=== PATIENT | male | born 1950 | race Caucasian/White ===

== ENCOUNTER 2016-03-30 16:46 | Inpatient (IN) | payer OTHER ==
[~2016-03-30] VITALS: Ht 180.3 cm; Wt 92.3 kg
[~2016-03-30 16:46] MED LIST: ACETAMINOPHEN500 MG PO; ALTACE10 M1 PO; ALTACE10 MG PO; ALTACE2.5 MG PO; ANALGESIC325 MG PO; BACTRIM,SEPT1 TABLET GT; BUMETANIDE1 MG PO; FENTANYL1 EAC5 TD; FORTAMET500 M1 PO; GABAPENTIN300 MG PO; GLUCOPHAGE500 MG PO; GLYBURIDE PO; JEVITY 1.2 CAL237 ML GT; K-DUR10 MEQ PO; KEFLEX500 MG GT; LANTUS 3 M100 UNITS1 SC; LEVO-T112 MCG GT; LIDOPATCH1 EACH TD; LIPITOR40 MG GT; LISINOPRIL5 MG PO; LITE COAT ASPI325 M1 GT; LOPRESSOR25 MG PO; METFORMIN HCL1000 MG PO; METFORMIN HCL500 MG PO; METOPROLOL SUC100 MG PO; METOPROLOL SUCC25 MG PO; METOPROLOL TART25 MG PO; NICOTINE PATCH1 EAC1 TD; NICOTINE PATCH1 EAC2 TD; NOVOFINE NEE1 NEEDLE MC; ONGLYZA5 MG PO; OXYCODONE H5 MG/5 ML PO; OXYCONTIN20 MG PO; SANTYL30 GM TP; SERTRALINE HCL50 MG GT; SIMVASTATIN10 MG PO; SIMVASTATIN20 M1 PO; TYLENOL EXTRA500 MG GT; TYLENOL EXTRA500 MG PO; ZEASORB POWDE70.9 GM TP; ZOCOR40 MG PO; ZYVOX600 MG PO; Zeasorb Antifungal Treatment,Mitrazol Powder TP
[2016-03-30 19:12] LABS: CHLORIDE 98 mEq/L (99-109); POTASSIUM 4.2 mEq/L (3.7-5.4); SODIUM 134 mEq/L (136-147)
[2016-03-30 19:14] LABS: GLUCOSE 181 mg/dL (70-99)
[2016-03-30 19:15] LABS: ANION GAP 13 MEQ/L (2-14)
[2016-03-30 19:16] LABS: MCH 28.3 PG (29.0-34.0); MCHC 31.9 G/DL (30.0-36.0); MCV 88.6 FL (86-99); MEAN PLAT.VOLUME 9.4 uM^3 (9.0-12.4); PLATELET COUNT 261 K/uL (156-360); RBC DIS.WIDTH-SD 45.3 % (39-53); RED BLOOD COUNT 4.74 M/uL (4.00-5.50); TOTAL BILIRUBIN 0.4 mg/dL (0.0-1.0)
[2016-03-30 19:17] LABS: ALKALINE PHOSPHATASE 90 IU/L (3-129)
[2016-03-30 19:18] LABS: GFR ESTIMATE (CALCULATED) 54 mL/min/
[2016-03-30 19:19] LABS: UREA NITROGEN (BUN) 21 mg/dL (9-23)
[2016-03-30 19:21] LABS: LIPASE 23 U/L (1.0-51.0)
[2016-03-30 19:26] LABS: EOSINOPHIL (%) 0.1 % (0-5); IMMATURE GRANULOCYTE (%) 0.3 % (0.0-0.7); LYMPHOCYTE COUNT 0.9 K/uL (1.0-2.8); MONOCYTE (%) 4.3 % (3-12); MONOCYTE COUNT 0.6 K/uL (0-0.8); NEUTROPHIL (%) 89.6 % (45-76); NEUTROPHIL COUNT 13.5 K/uL (1.8-6.4)
[2016-03-30] MEDS ORDERED: METOPROLOL TAR100 MG GT (21:33)
[2016-03-30] MEDS ORDERED: FENTANYL1 EAC1 TD (21:33)
[2016-03-30] MEDS ORDERED: OXYCODONE HCL10 MG GT (21:34)
[2016-03-30] MEDS ORDERED: GABAPENTIN800 MG GT (21:34)
[2016-03-30] MEDS ORDERED: RAMIPRIL2.5 MG GT (21:36)
[2016-03-31] VITALS (10 sets, daily range): BP systolic 116–157; BP diastolic 61–89
[2016-03-31 00:08] LABS: CHLORIDE 103 mEq/L (99-109); POTASSIUM 4.4 mEq/L (3.7-5.4); SODIUM 135 mEq/L (136-147)
[2016-03-31 00:11] LABS: GLUCOSE 220 mg/dL (70-99)
[2016-03-31 00:12] LABS: ANION GAP 13 MEQ/L (2-14)
[2016-03-31 00:14] LABS: ALKALINE PHOSPHATASE 77 IU/L (3-129)
[2016-03-31 00:15] LABS: GFR ESTIMATE (CALCULATED) > 59 mL/min/; TOTAL BILIRUBIN 0.3 mg/dL (0.0-1.0)
[2016-03-31 00:16] LABS: UREA NITROGEN (BUN) 18 mg/dL (9-23)
[2016-03-31 02:33] LABS: ADD MIUA? YES; BILIRUBIN SMALL; BLOOD NEGATIVE; COLOR DK YELLOW ((YELLOW)); GLUCOSE (STRIP) NEGATIVE; KETONES TRACE; LEUKOCYTES TRACE; NITRITE NEGATIVE; PROTEIN (STRIP) TRACE; SPECIFIC GRAVITY 1.045 (1.000-1.030); UROBILINOGEN 0.2 MG/DL (0.2-1.0)
[2016-03-31 02:43] LABS: BACTERIA RARE /HPF; EPITHELIAL CELLS RARE /HPF; MUCUS NONE SEEN /LPF; RED BLOOD CELLS 0-5 /HPF (0-5); UCUL ADDED? NO; WHITE BLOOD CELLS 0-5 /HPF (0-5)
[2016-03-31 02:44] LABS: CASTS PRESENT /LPF; CRYSTALS NONE SEEN; FINE GRANULAR CASTS 0-5 /LPF; HYALINE CASTS 0-5 /LPF
[2016-03-31 07:21] LABS: EOSINOPHIL (%) 0 % (0-5); HEMATOCRIT 35.6 % (38.0-50.0); IMMATURE GRANULOCYTE (%) 0.1 % (0.0-0.7); LYMPHOCYTE COUNT 0.5 K/uL (1.0-2.8); MCH 28.6 PG (29.0-34.0); MCHC 33.1 G/DL (30.0-36.0); MCV 86.4 FL (86-99); MEAN PLAT.VOLUME 9.2 uM^3 (9.0-12.4); MONOCYTE (%) 6.9 % (3-12); MONOCYTE COUNT 0.6 K/uL (0-0.8); NEUTROPHIL (%) 87.8 % (45-76); NEUTROPHIL COUNT 7.6 K/uL (1.8-6.4); PLATELET COUNT 240 K/uL (156-360); RBC DIS.WIDTH-CV 14.1 % (11.8-14.6); RBC DIS.WIDTH-SD 43.9 % (39-53); RED BLOOD COUNT 4.12 M/uL (4.00-5.50)
[2016-03-31 07:22] LABS: WHITE BLOOD COUNT 8.6 K/uL (4.1-10.2)
[2016-03-31 14:33] LABS: HEMATOCRIT 33.9 % (38.0-50.0); MCH 29.1 PG (29.0-34.0); MCHC 33.3 G/DL (30.0-36.0); MCV 87.4 FL (86-99); MEAN PLAT.VOLUME 9.1 uM^3 (9.0-12.4); PLATELET COUNT 216 K/uL (156-360); RBC DIS.WIDTH-CV 14.1 % (11.8-14.6); RBC DIS.WIDTH-SD 44.3 % (39-53); RED BLOOD COUNT 3.88 M/uL (4.00-5.50); WHITE BLOOD COUNT 7.7 K/uL (4.1-10.2)
[2016-03-31 14:51] LABS: ANION GAP 7 MEQ/L (2-14); CHLORIDE 106 MEQ/L (99-109); POTASSIUM 3.7 MEQ/L (3.7-5.4); SAMPLE HEMOLYSIS CHECK 0; SAMPLE ICTERIC CHECK 0; SAMPLE LIPEMIA CHECK 0; SODIUM 137 MEQ/L (136-147)
[2016-03-31 14:57] LABS: GFR ESTIMATE (CALCULATED) > 59 mL/min/; UREA NITROGEN (BUN) 14 mg/dL (9-23)
[2016-03-31 14:59] LABS: GLUCOSE 107 mg/dL (70-99)
[2016-04-01 00:12] VITALS: BP 156/70
[2016-04-01 06:55] LABS: HEMATOCRIT 34.2 % (38.0-50.0); MCH 28.3 PG (29.0-34.0); MCHC 32.2 G/DL (30.0-36.0); MCV 87.9 FL (86-99); MEAN PLAT.VOLUME 9.2 uM^3 (9.0-12.4); PLATELET COUNT 196 K/uL (156-360); RBC DIS.WIDTH-CV 14.4 % (11.8-14.6); RBC DIS.WIDTH-SD 45.9 % (39-53); RED BLOOD COUNT 3.89 M/uL (4.00-5.50); WHITE BLOOD COUNT 7.4 K/uL (4.1-10.2)
[2016-04-01 08:13] LABS: ANION GAP 9 MEQ/L (2-14); CHLORIDE 106 MEQ/L (99-109); POTASSIUM 3.8 MEQ/L (3.7-5.4); SAMPLE HEMOLYSIS CHECK 0; SAMPLE ICTERIC CHECK 0; SAMPLE LIPEMIA CHECK 0; SODIUM 137 MEQ/L (136-147)
[2016-04-01 08:22] LABS: GFR ESTIMATE (CALCULATED) > 59 mL/min/; GLUCOSE 161 mg/dL (70-99); UREA NITROGEN (BUN) 11 mg/dL (9-23)
[2016-04-01 08:23] VITALS: BP 166/71
[2016-04-01 14:58] LABS: TROP-I INTERPRETATION NEGATIVE; TROPONIN-I 0.02 ng/mL (0.0-0.30)
[2016-04-01 16:21] VITALS: BP 150/66
[2016-04-01 17:20] LABS: INTER. NORMALIZED RATIO 1.4; PROTHROMBIN TIME 13.9 (9.2-11.2); PTT 35.7 (25-32)
[2016-04-01 19:13] LABS: HEMATOCRIT 29.9 % (38.0-50.0); MCV 94.3 FL (86-99)
[2016-04-01 19:37] VITALS: BP 118/58
[2016-04-01 20:15] LABS: HEMATOCRIT 30.4 % (38.0-50.0); MCV 93.8 FL (86-99)
[2016-04-02 00:05] VITALS: BP 105/52
[2016-04-02 04:51] VITALS: BP 113/62
[2016-04-02 07:22] LABS: HEMATOCRIT 31.6 % (38.0-50.0); MCH 29.4 PG (29.0-34.0); MCHC 32.6 G/DL (30.0-36.0); MCV 90.3 FL (86-99); MEAN PLAT.VOLUME 9.4 uM^3 (9.0-12.4); PLATELET COUNT 193 K/uL (156-360); RBC DIS.WIDTH-CV 14.8 % (11.8-14.6); RBC DIS.WIDTH-SD 47.9 % (39-53); WHITE BLOOD COUNT 5.3 K/uL (4.1-10.2)
[2016-04-02 07:54] VITALS: BP 118/63
[2016-04-02 08:01] LABS: ANION GAP 9 MEQ/L (2-14); CHLORIDE 106 MEQ/L (99-109); GFR ESTIMATE (CALCULATED) > 59 mL/min/; GLUCOSE 98 mg/dL (70-99); POTASSIUM 3.5 MEQ/L (3.7-5.4); SAMPLE HEMOLYSIS CHECK 0; SAMPLE ICTERIC CHECK 0; SAMPLE LIPEMIA CHECK 0; SODIUM 138 MEQ/L (136-147); UREA NITROGEN (BUN) 10 mg/dL (9-23)
[2016-04-02 11:44] VITALS: BP 107/59
[2016-04-02 15:33] VITALS: BP 151/69
[2016-04-02 19:37] VITALS: BP 138/67
[2016-04-03 00:15] VITALS: BP 124/66
[2016-04-03 04:05] VITALS: BP 139/68
[2016-04-03 08:17] VITALS: BP 126/61
[2016-04-03 13:16] LABS: POINT-OF-CARE USER ID 612031313
[2016-04-03 16:00] VITALS: BP 125/60
[2016-04-03 20:25] VITALS: BP 136/66
[2016-04-04 00:23] LABS: POINT-OF-CARE METER ID UU14174225
[2016-04-04 00:37] VITALS: BP 133/64
[2016-04-04 04:18] VITALS: BP 141/65
[2016-04-04 07:30] VITALS: BP 127/66
[2016-04-04 12:00] VITALS: BP 116/64
[2016-04-04 16:00] VITALS: BP 127/65
[2016-04-05 00:29] VITALS: BP 103/56
[2016-04-05 00:44] LABS: POINT-OF-CARE METER ID UU14188625
[2016-04-05 07:58] VITALS: BP 129/52
[2016-04-05 10:28] LABS: INTERNAL CONTROL VALID? YES
[2016-04-05 11:26] LABS: C DIFF TOXIN NEGATIVE (NEGATIVE)
[2016-04-05 11:29] LABS: PROBE CHECK PASS; SPECIMEN PROCESSING CONTROL PASS
[2016-04-05 16:22] VITALS: BP 132/56
[2016-04-05 18:12] LABS: POINT-OF-CARE METER ID UU14188625
[2016-04-06 00:20] VITALS: BP 109/55
[2016-04-06 06:33] LABS: POINT-OF-CARE USER ID BHSKTD
[2016-04-06 07:51] VITALS: BP 122/62
[2016-04-06 16:30] VITALS: BP 111/56
[2016-04-06 18:04] LABS: POINT-OF-CARE METER ID UU14188625
[2016-04-07 01:24] VITALS: BP 131/54
[2016-04-07 08:01] VITALS: BP 134/67
[2016-04-07 09:29] LABS: HEMATOCRIT 36.6 % (38.0-50.0); MCHC 32.5 G/DL (30.0-36.0); MCV 89.3 FL (86-99); MEAN PLAT.VOLUME 9.7 uM^3 (9.0-12.4); PLATELET COUNT 234 K/uL (156-360); RBC DIS.WIDTH-CV 14.8 % (11.8-14.6)
[2016-04-07 09:30] LABS: WHITE BLOOD COUNT 3.6 K/uL (4.1-10.2)
[2016-04-07 09:40] LABS: ALKALINE PHOSPHATASE 55 IU/L (3-129); ANION GAP 7 MEQ/L (2-14); CHLORIDE 99 MEQ/L (99-109); GFR ESTIMATE (CALCULATED) > 59 mL/min/; GLUCOSE 218 mg/dL (70-99); POTASSIUM 4.2 MEQ/L (3.7-5.4); SAMPLE HEMOLYSIS CHECK 0; SAMPLE ICTERIC CHECK 0; SAMPLE LIPEMIA CHECK 0; SODIUM 138 MEQ/L (136-147); TOTAL BILIRUBIN 0.2 MG/DL (0.0-1.0); UREA NITROGEN (BUN) 7 mg/dL (9-23)
[2016-04-07 16:06] VITALS: BP 149/68
[2016-04-07 20:00] VITALS: BP 153/70
[2016-04-08] VITALS (7 sets, daily range): BP systolic 118–151; BP diastolic 62–71
[2016-04-08 23:02] LABS: POINT-OF-CARE METER ID UU14174225
[2016-04-09 03:55] VITALS: BP 134/60
[2016-04-09 05:48] LABS: POINT-OF-CARE METER ID UU14188625
[2016-04-09 07:40] VITALS: BP 160/66
[2016-04-09 11:12] VITALS: BP 134/64
[2016-04-09 15:10] VITALS: BP 127/66
[2016-04-09 16:13] LABS: POINT-OF-CARE METER ID UU14174225
[2016-04-09 19:26] VITALS: BP 127/58
[2016-04-10 00:04] VITALS: BP 117/64
[2016-04-10 03:34] VITALS: BP 144/69
[2016-04-10 07:23] LABS: HEMATOCRIT 35.3 % (38.0-50.0); MCH 29.2 PG (29.0-34.0); MCHC 32.3 G/DL (30.0-36.0); MCV 90.3 FL (86-99); MEAN PLAT.VOLUME 10.3 uM^3 (9.0-12.4); PLATELET COUNT 257 K/uL (156-360); RBC DIS.WIDTH-CV 15.1 % (11.8-14.6); RBC DIS.WIDTH-SD 48.5 % (39-53); RED BLOOD COUNT 3.91 M/uL (4.00-5.50)
[2016-04-10 07:25] LABS: WHITE BLOOD COUNT 7.8 K/uL (4.1-10.2)
[2016-04-10 07:45] LABS: ANION GAP 10 MEQ/L (2-14); CHLORIDE 98 MEQ/L (99-109); GFR ESTIMATE (CALCULATED) > 59 mL/min/; GLUCOSE 130 mg/dL (70-99); POTASSIUM 4.6 MEQ/L (3.7-5.4); SAMPLE HEMOLYSIS CHECK 0; SAMPLE ICTERIC CHECK 0; SAMPLE LIPEMIA CHECK 0; SODIUM 138 MEQ/L (136-147); UREA NITROGEN (BUN) 13 mg/dL (9-23)
[2016-04-10] MEDS ORDERED: OXAYDO5 MG PO (07:48)
[2016-04-10 08:12] VITALS: BP 133/69
[2016-04-10 11:30] VITALS: BP 100/50
[2016-04-10 15:53] VITALS: BP 99/56
[2016-04-10 20:00] VITALS: BP 117/63
[2016-04-11 00:02] VITALS: BP 140/69
[2016-04-11 04:00] VITALS: BP 110/60
[2016-04-11 07:11] LABS: HEMATOCRIT 36.4 % (38.0-50.0); MCH 27.7 PG (29.0-34.0); MCHC 30.8 G/DL (30.0-36.0); MCV 89.9 FL (86-99); MEAN PLAT.VOLUME 9.7 uM^3 (9.0-12.4); PLATELET COUNT 285 K/uL (156-360); RBC DIS.WIDTH-CV 14.9 % (11.8-14.6); RBC DIS.WIDTH-SD 48.2 % (39-53); RED BLOOD COUNT 4.05 M/uL (4.00-5.50); WHITE BLOOD COUNT 8.2 K/uL (4.1-10.2)
[2016-04-11 07:29] LABS: ANION GAP 8 MEQ/L (2-14); CHLORIDE 96 MEQ/L (99-109); GFR ESTIMATE (CALCULATED) > 59 mL/min/; GLUCOSE 144 mg/dL (70-99); POTASSIUM 4.3 MEQ/L (3.7-5.4); SAMPLE HEMOLYSIS CHECK 0; SAMPLE ICTERIC CHECK 0; SAMPLE LIPEMIA CHECK 0; SODIUM 136 MEQ/L (136-147); UREA NITROGEN (BUN) 13 mg/dL (9-23)
[2016-04-11 07:32] VITALS: BP 110/60
[2016-04-11 07:39] LABS: POINT-OF-CARE METER ID UU14188625
[2016-04-11 11:12] VITALS: BP 121/63
[2016-04-11 11:13] LABS: POINT-OF-CARE METER ID UU14174225
[2016-04-11] MEDS ORDERED: OXYCODONE HCL5 MG GT (14:15)
[2016-04-11] MEDS ORDERED: FENTANYL1 EAC1 TD (14:15)
[2016-04-11 15:06] VITALS: BP 116/54
[2016-04-11 16:30] LABS: POINT-OF-CARE METER ID UU14174225
== END 2016-04-11 19:55 | disposition home or self-care (01) | DRG 872 ==
LOC: EME 16:46 → 5SOUTH 21:48 → EDOF 21:48 → 5SOUTH 03-31 00:05
PROVIDERS: Emergency Medicine; Hospitalist; Internal Medicine; Internal Medicine Gastroenterology; Internal Medicine Pulmonary Disease; Nurse Practitioner Adult Health; Physician Assistant
DX: A41.9 Sepsis, unspecified organism (principal); K52.9 Noninfective gastroenteritis and colitis, unspecified; E13.9 Other specified diabetes mellitus without complications; E87.1 Hypo-osmolality and hyponatremia; E78.00 Pure hypercholesterolemia, unspecified; I10 Essential (primary) hypertension; J44.9 Chronic obstructive pulmonary disease, unspecified; C32.9 Malignant neoplasm of larynx, unspecified; I25.5 Ischemic cardiomyopathy
CPT/HCPCS: 71010; 71020; 71275; 74176; 74177; 77012; 80048; 80053; 80069; 80202; 81003; 82948; 83605; 83630; 83690; 84484; 85014; 85018; 85025; 85027; 85610; 85730; 87040; 87177; 87493; 87506; 87801; 88305; 88341 TC; 88342 TC; 92526 GN; 92610 GN; 93005; 94640; 94640 76; 94799; 99281; 99285; C9113; J0692; J0696; J1644; J1815; J2270; J2930; J3010; J3370; J7030; J7050; J7512; S0028; S0030

== ENCOUNTER 2016-05-01 11:22 | Emergency (ER) | payer OTHER ==
[~2016-05-01] VITALS: Ht 180.3 cm; Wt 55.5 kg
[~2016-05-01 11:22] MED LIST changes: +FENTANYL1 EAC1 TD; +GABAPENTIN800 MG GT; +METOPROLOL TAR100 MG GT; +OXAYDO5 MG PO; +OXYCODONE HCL10 MG GT; +OXYCODONE HCL5 MG GT; +RAMIPRIL2.5 MG GT
[2016-05-01 12:10] LABS: HEMATOCRIT 33.5 % (38.0-50.0); MCH 28.9 PG (29.0-34.0); MCHC 31.9 G/DL (30.0-36.0); MCV 90.5 FL (86-99); MEAN PLAT.VOLUME 8.6 uM^3 (9.0-12.4); PLATELET COUNT 285 K/uL (156-360); RBC DIS.WIDTH-CV 14.7 % (11.8-14.6); RBC DIS.WIDTH-SD 48.2 % (39-53)
[2016-05-01 12:13] LABS: WHITE BLOOD COUNT 4.7 K/uL (4.1-10.2)
[2016-05-01 12:21] LABS: INTER. NORMALIZED RATIO 1.2; PROTHROMBIN TIME 12.4 (9.2-11.2); PTT 35.6 (25-32)
[2016-05-01 13:52] VITALS: BP 103/49
== END 2016-05-01 13:55 | disposition home or self-care (01) ==
LOC: EME 11:22
PROVIDERS: Emergency Medicine
DX: Z45.2 Encounter for adjustment and management of vascular access device (principal); E11.9 Type 2 diabetes mellitus without complications; I10 Essential (primary) hypertension; G89.29 Other chronic pain; Z85.21 Personal history of malignant neoplasm of larynx; Z95.1 Presence of aortocoronary bypass graft; Z87.891 Personal history of nicotine dependence
CPT/HCPCS: 85027; 85610; 85730; 99281; 99284

== ENCOUNTER 2016-05-03 18:56 | Emergency (ER) | payer OTHER ==
[~2016-05-03] VITALS: Ht 180.3 cm; Wt 73.8 kg
[2016-05-03] MEDS ORDERED: BACTRIM,SEPT1 TABLET PO (19:17)
[2016-05-03] MEDS ORDERED: KEFLEX500 MG PO (19:17)
[2016-05-03] MEDS ORDERED: CALMOSEPTINE O120 GM TP (19:17)
[2016-05-03 19:56] LABS: HEMATOCRIT 34.9 % (38.0-50.0); MCH 28.5 PG (29.0-34.0); MCHC 31.8 G/DL (30.0-36.0); MCV 89.5 FL (86-99); MEAN PLAT.VOLUME 8.7 uM^3 (9.0-12.4); PLATELET COUNT 287 K/uL (156-360); RBC DIS.WIDTH-CV 14.6 % (11.8-14.6); WHITE BLOOD COUNT 5.3 K/uL (4.1-10.2)
[2016-05-03 20:09] LABS: CHLORIDE 95 mEq/L (99-109); POTASSIUM 4.1 mEq/L (3.7-5.4)
[2016-05-03 20:10] LABS: SODIUM 133 mEq/L (136-147)
[2016-05-03 20:11] LABS: GLUCOSE 117 mg/dL (70-99)
[2016-05-03 20:13] LABS: ANION GAP 9 MEQ/L (2-14)
[2016-05-03 20:15] LABS: GFR ESTIMATE (CALCULATED) > 59 mL/min/
[2016-05-03 20:16] LABS: UREA NITROGEN (BUN) 6 mg/dL (9-23)
[2016-05-03 20:30] VITALS: BP 107/65
== END 2016-05-04 00:07 | disposition home or self-care (01) ==
LOC: EME 18:56
PROVIDERS: Emergency Medicine
PROC: 0D20XUZ Change Feeding Device in Upper Intestinal Tract, External Approach (ICD-10-PCS; principal; 2016-05-03)
DX: Z43.1 Encounter for attention to gastrostomy (principal); L03.311 Cellulitis of abdominal wall; E11.9 Type 2 diabetes mellitus without complications; I10 Essential (primary) hypertension; Z95.1 Presence of aortocoronary bypass graft; Z85.21 Personal history of malignant neoplasm of larynx; Z87.891 Personal history of nicotine dependence; Z79.4 Long term (current) use of insulin; Z79.82 Long term (current) use of aspirin
CPT/HCPCS: 74177; 80048; 85027; 99281; 99285; J2060; J2270